=== PATIENT | female | born 1985 | race Caucasian/White ===

== ENCOUNTER 2018-12-27 17:26 | Emergency (ER) | payer OTHER ==
[~2018-12-27] VITALS: Ht 167.6 cm; Wt 81.0 kg
[2018-12-27 17:30] VITALS: BP 151/71; PULSE 102; RESP 20; Ht 167.6 cm; Wt 81.0 kg
[2018-12-27] MEDS ORDERED: CEPH-443 PO (20:51)
[2018-12-27] MEDS ORDERED: SULF1TAB31 PO (20:51)
[2018-12-27] MEDS ORDERED: IBUP-1542 PO (20:51)
[2018-12-27] MEDS ORDERED: IBUPROFEN 600 MG TAB PO ONE (21:00)
[2018-12-27] MEDS ORDERED: CLINDAMYCIN 300 MG INJ IM ONE (21:00)
--- NOTE | 2018-12-27 21:00 | ERD ---
ER Documentation Chief Complaint Chief Complaint pt is bib self with c/o left hip pain "feels like an infection " x 3 day s HPI 33-year-old female presents for left hip pain and swelling x3 days. She also has an area of lesion over the right lateral knee and left shoulder. She states that she drained the bump over the knee a couple weeks ago. She states that she has subjective fever. She tried a couple of Keflex medication that she has had in the past for MRSA skin infection. She states that she has a lot of pain noted to be 7 out of 10 over the right areas. Otherwise denies chest pain or shortness of breath. No other modifying factors noted. No other treatments tried at home. ROS All systems reviewed and are negative except as per history of present illness. Medications Home Meds Active Scripts Ibuprofen* (Motrin*) 600 Mg Tab, 600 MG PO Q6H PRN for PAIN, #30 TAB Prov:ADELA HOUGH DO 12/27/18 Sulfamethoxazole/Trimethoprim* (Bactrim Ds* Tablet) 1 Each Tablet, 1 TAB PO BID for skin infection for 7 Days, #14 TAB Prov:ADELA HOUGH DO 12/27/18 Cephalexin* (Keflex*) 500 Mg Capsule, 500 MG PO TID for skin infection for 7 Days, #21 CAP Prov:ADELA HOUGH DO 12/27/18 Allergies Allergies: Coded Allergies: No Known Allergy (Unverified , 12/27/18) PMhx/Soc Medical and Surgical Hx: pt denies Medical Hx, pt denies Surgical Hx Hx Miscellaneous Medical Probl: Yes (mrsa) Hx Alcohol Use: No Hx Substance Use: No Hx Tobacco Use: No Smoking Status: Current every day smoker FmHx Family History: No coronary disease Physical Exam Vitals Vital Signs Date Temp Pulse Resp B/P (MAP) Pulse Ox O2 O2 Flow FiO2 Time Delivery Rate 12/27/18 98.3 102 20 151/71 99 17:30 (97) Physical Exam Const: No acute distress Resp: Clear to auscultation bilaterally Cardio: Regular rate and rhythm, no murmurs, peripheral pulses intact Skin: Large area of erythema over the left hip with 2 small areas of induration, there is no actual fluctuance. There is also an erythematous nodule over the medial side of the right knee, with incision, no active drainage. No other nodular red area over the left shoulder with some induration, no fluctuance underlying. All of the areas are warm to touch. Ext: No cyanosis, or edema Neur: Awake and alert, bilateral upper and lower extremity sensation intact Psych: Normal Mood and Affect Results 24 hrs Current Medications Medications Dose Sig/[place] Start Time Status Last (Trade) Ordered Route PRN Stop Time Admin Dose Reason Admin Clindamycin 300 mg ONCE ONCE 12/27/18 12/27/18 Phosphate IM 21:12/27/18 20:51 (Cleocin) 21:01 Ibuprofen 600 mg ONCE ONCE 12/27/18 12/27/18 (Motrin) PO 21:12/27/18 20:46 21:01 Procedures/MDM Medical Decision Making: Differential diagnosis includes but not limited to staph skin infection, abscess, dermatitis, allergic reaction Patient appeared well on physical exam. There is no acute distress Examination was sent consistent with a staph infection. Given that patient has a history of MRSA patient will be treated with Bactrim and Keflex antibiotics Patient advised to return to the ER in 48 hours for a recheck given that her infection may become an abscess that may need to be drained. Currently the areas are indurated without underlying fluctuance therefore it was felt that incision and drainage may be too early. Patient will be given a trial of antibiotics first. Patient given a shot of clindamycin IM in the ER and Motrin for pain Prescription(s): Patient given prescription for supportive medication(s) and Keflex and Bactrim. Patient advised to follow up with PCP in 1-2 days. Patient advised to return to ED for new or worsening symptoms. Patient stable on discharge from the ED. Disclaimer: Inadvertent spelling and grammatical errors are likely due to EHR/dictation software use and do not reflect on the overall quality of patient care. Also, please note that the electronic time recorded on this note does not necessarily reflect the actual time of the patient encounter. Departure Diagnosis: Primary Impression: Staph skin infection Condition: Fair Patient Instructions: Cellulitis Referrals: COMM[facility]ITY CLIN[facility] YOU HAVE RECEIVED A MEDICAL SCREENING EXAM AND THE RESULTS INDICATE THAT YOU DO NOT HAVE A CONDITION THAT REQUIRES URGENT TREATMENT IN THE EMERGENCY DEPARTMENT. FURTHER EVALUATION AND TREATMENT OF YOUR CONDITION CAN WAIT UNTIL YOU ARE SEEN IN YOUR DOCTORS OFFICE WITHIN THE NEXT 1-2 DAYS. IT IS YOUR RESPONSIBILITY TO MAKE AN APPOINTMENT FOR FOLOW-UP CARE. IF YOU HAVE A PRIMARY DOCTOR --you should call your primary doctor and schedule an appointment IF YOU DO NOT HAVE A PRIMARY DOCTOR YOU CAN CALL OUR PHYSICIAN REFERRAL HOTLINE AT IF YOU CAN NOT AFFORD TO SEE A PHYSICIAN YOU CAN CHOSE FROM THE FOLLOWING [facility] CL[facility]ICS [facility] [address] [facility]. [facility] [address] [facility] [address] [facility] [facility] [address] [facility]. [facility] [address] [facility]. [facility]. [address] Additional Instructions: Call your primary care doctor TOMORROW for an appointment during the next 1-2 days.See the doctor sooner or return here if your condition worsens before your appointment time. ADELA HOUGH DO December 27, 2018 21:00
== END 2018-12-27 22:43 | disposition left against medical advice (07) ==
LOC: FTE 17:26
DX: L08.9 Local infection of the skin and subcutaneous tissue, unspecified (principal); F17.210 Nicotine dependence, cigarettes, uncomplicated
CPT/HCPCS: 96372; Z7502; Z7610